=== PATIENT | male | born 1995 | race Caucasian/White ===

== ENCOUNTER 2022-03-01 20:14 | Emergency (ER) | payer OTHER ==
[~2022-03-01] VITALS: Ht 172.7 cm; Wt 100.0 kg
[2022-03-01 20:22] VITALS: BP 147/83
== END 2022-03-01 22:04 | disposition home or self-care (01) ==
LOC: ER 20:14
DX: D18.01 Hemangioma of skin and subcutaneous tissue (principal); Z98.890 Other specified postprocedural states
CPT/HCPCS: 99281